=== PATIENT | male | born 1975 | race Caucasian/White ===

== ENCOUNTER 2022-09-26 15:55 | Emergency (ER) | payer BC, SELFPAY ==
--- NOTE | 2022-09-26 16:39 | XR_ITS ---
PROCEDURE INFORMATION: Exam: XR Right Foot Exam date and time: 09/26/2022 4:38 PM Age: 46 years old Clinical indication: Pain; Foot; Right; Additional info: Right lateral foot pain TECHNIQUE: Imaging protocol: Radiologic exam of the Right foot. Views: 3 or more views. COMPARISON: No relevant prior studies available. FINDINGS: Bones/joints: No acute fracture or dislocation. Ovoid 9 mm accessory peroneal ossicle noted lateral to the cuboid bone. Minimal plantar and Achilles calcaneal spurs.There are no lytic skeletal lesions seen. No significant bony arthritic deformities. Soft tissues: Minimal soft tissue swelling.No radiopaque foreign bodies. No pathologic soft tissue calcification. IMPRESSION: 1. No acute fracture or dislocation. 2. Minimal degenerative changes, as above.
[2022-09-26 16:45] VITALS: BP 127/77; PULSE 87; RESP 18; TEMP 36.6; O2SAT 100; BMI 32.1
--- NOTE | 2022-09-26 17:06 | EXP.UTC ---
Discharge Plan Disposition Patient Disposition: Home, Self-Care Condition: Good Referrals Follow up/Referrals: Provider,Referral, MD [Primary Care Provider] - See instructions Activity Restrictions/Add. Instructions Additional Instructions/Restrictions: *weight bearing as tolerated *RICE, Rest the extremity, Ice 15-20 minutes 3-4 times daily, Compress- wear the todd wrap as discussed as much as possible to help reduce swelling and pain, Elevate the extremity when at rest *Todd wrap is for support and help control swelling, use it except in the shower. Be sure that is not to tight but not to loose either *Elevate when resting? *Ibuprofen 600-800mg every 6-8 hours as needed for pain an inflammation. If need something more can take Tylenol in between doses of Ibuprofen to help Immediately follow up with your family doctor for new or worsening of symptoms, or no noticeable improvement over the next 3-5 days Return if needed Follow up with [facility] if no improvement or any worsening of symptoms Clinical Impressions Clinical Impression: Acute foot pain Qualifiers: Laterality: right Qualified Code(s): M79.671 - Pain in right foot Instructions Patient Instructions: DI for Foot Pain Discharge ED Provider: Lizett Freedman [facility] General Stated complaint: right foot pain, no known accident Time Seen by Provider: 09/26/22 17:06 History of Present Illness Provider Complaint: Patient state that he has been having pain in the side of his right foot since Monday and hurts when he puts weight on it States that he doesnt remember doing anything to hurt it but today he was still having pain and felt like it was swollen so he came in to get it checked out Related Data Allergies Allergy/AdvReac Type Severity Reaction Status Date / Time No Known Allergies Allergy Verified 09/26/22 17:13 [facility] Medical History (Updated 09/26/22 @ 17:54 by Lizett Freedman APRN) Anxiety Depression Hyperlipidemia Hypertension Surgical History (Updated 09/26/22 @ 17:12 by Adali Powell RN) History of back surgery Social History (Updated 09/26/22 @ 17:13 by Adali Powell RN) Smoking Status: Unknown if ever smoked alcohol intake: never current occupational status: other Travel in the last 8 weeks: None ROS Obtained: Yes All systems reviewed & no additional complaints except as documented and Yes Systems reviewed as appropriate & no additional complaints except as documented Constitutional Constitutional: Reports system reviewed and no additional complaints, except as documented and Reports as per HPI Cardiovascular Cardiovascular: Reports system reviewed and no additional complaints, except as documented and Reports as per HPI Respiratory Respiratory: Reports system reviewed and no additional complaints, except as documented and Reports as per HPI Gastrointestinal Gastrointestingal: Reports system reviewed and no additional complaints, except as documented and as per HPI Musculoskeletal Musculoskeletal: Reports system reviewed and no additional complaints, except as documented, Reports as per HPI and Reports other (Pain in side of right foot denies known injury) Physical Exam General General appearance: alert and in no apparent distress Respiratory Respiratory exam: Present normal lung sounds bilaterally; Absent respiratory distress or wheezes Cardiovascular Cardiovascular exam: Present regular rate, normal rhythm and normal heart sounds Expanded Lower Extremity Exam Right: Ankle exam: Present normal inspection and full ROM Foot/toe exam: Present tenderness; Absent swelling, ecchymosis or erythema Top foot image: 1. reports tenderness and pain with weight bearing denies known injury no swelling no redness no warmth noted Neurovascular/Tendon exam: Present normal capillary refill; Absent pulse deficit or motor deficit Gait: observed and normal Neurological Exam Neur
[2022-09-26 17:57] VITALS: BP 127/77; PULSE 87; RESP 18; TEMP 36.6; O2SAT 100
== END 2022-09-26 18:00 | disposition home or self-care (01) ==
PROVIDERS: Emergency Provider Nurse Practitioner
DX: M79.671 Pain in right foot (principal)
CPT/HCPCS: 73630; 99212; G0463

== ENCOUNTER 2023-07-13 11:58 | Emergency (ER) | payer BC, SELFPAY ==
[2023-07-13 12:08] VITALS: BP 117/71; PULSE 81; RESP 14; TEMP 36.6; O2SAT 99; BMI 34.5
[2023-07-13 12:30] VITALS: BP 126/79; PULSE 82; O2SAT 97
--- NOTE | 2023-07-13 12:42 | CA_ITS ---
FINAL REPORT TECHNIQUE: Graded compression, spectral analysis and ultrasound images of the venous system of the upper extremity were obtained. CLINICAL HISTORY: LUE swelling/pain without injury, Hx- bone spurs in spine FINDINGS: The jugular vein, subclavian vein, axillary vein, brachial vein, cephalic vein and basilic venous system are fully compressible and demonstrate no evidence of thrombosis. IMPRESSION: No evidence of thrombosis of the venous system of the left upper extremity. Reviewed, Interpreted and Dictated by Amador Anderson III, MD Transcribed by Kathie Olvera Authenticated and [facility]
[2023-07-13 13:37] VITALS: BP 115/71; PULSE 80; O2SAT 96
--- NOTE | 2023-07-13 13:40 | PC.NURSE ---
MARVIN Valdes rounded on patient, no needs at this time. Call light within reach.
--- NOTE | 2023-07-13 13:57 | HMH.EDGENADL ---
Discharge Plan Disposition Patient Disposition: Home, Self-Care Condition: Good Prescriptions Prescriptions: New methocarbamol 750 mg tablet 750 mg PO Q8H PRN (Reason: pain) Qty: 20 0RF Referrals Follow up/Referrals: Luz Chairez APRN [Primary Care Provider] - See instructions Activity Restrictions/Add. Instructions Additional Instructions/Restrictions: You were evaluated in the emergency department today. At this time, I feel that your pain is musculoskeletal. Please seed cone picker your prescription for muscle laxer at the pharmacy and take as needed for pain. You may also take Tylenol and ibuprofen in addition to this. Follow-up with your primary care provider over the next 3 days for reassessment. Return to the emergency department for new or worsening symptoms. Clinical Impressions Clinical Impression: Neck and shoulder pain Instructions Patient Instructions: DI for Acute Pain -- Adult, DI for Shoulder Pain Discharge ED Provider: Niesha Najera General Adult HPI General Chief complaint: PAIN Stated complaint: Lt shoulder pain, Lt hand swelling, no accident Time Seen by Provider: 07/13/23 12:37 Mode of Arrival: Ambulatory Source of Information: Patient Limitations: No Limitations Description of Symptoms (Recalled from ER Triage Doc. by RN): 47 yo M presents to ED with c/o left shoulder pain. pt reports he has pain that comes and goes with that shoulder. pt reports that this weekend pt was doing work in the yard. and pain began. History of Present Illness HPI narrative: This patient is a 47-year-old male who presents to the emergency department for evaluation with concern for left-sided shoulder pain. He states that he has had chronic issues with his left shoulder as well as pain that comes and goes. He was working in his yard during the week, and the pain started again. Is been going on for 3 days and he has not been able to get it under control with [id number] pain medications at home. He states that he also feels like his left arm is swollen and his hand is tight. He denies any history of blood clots, clotting disorders, chest pain, shortness of breath, or other concerns. He is otherwise been well without any acute focal injuries noted. Related Data Previous Rx's Medication Instructions Recorded methocarbamol 750 mg tablet 750 mg PO Q8H PRN pain #20 tabs 07/13/23 Allergies Allergy/AdvReac Type Severity Reaction Status Date / Time No Known Allergies Allergy Verified 09/26/22 17:13 [facility] Disclaimer: The information contained in this section may have been updated after the patient was seen, as this information can be updated by other users. Medical History Anxiety Depression Hyperlipidemia Hypertension Surgical History History of back surgery Social History Smoking Status: Never smoker alcohol intake: never current occupational status: other Travel in the last 8 weeks: None ROS Obtained: Yes All systems reviewed & no additional complaints except as documented Physical Exam General General appearance: alert and in no apparent distress Head Head exam: atraumatic and normocephalic Eye Eye exam: Present normal appearance, PERRL and EOMI ENT ENT exam: Present normal exam, normal oropharynx, mucous membranes moist and normal external ear exam Neck Neck exam: Present normal inspection, full ROM and trachea midline; Absent tenderness Chest Chest inspection: Present normal inspection and symmetric chest wall rise; Absent tenderness Respiratory Respiratory exam: Present normal lung sounds bilaterally; Absent respiratory distress, wheezes, stridor or accessory muscle use Cardiovascular Cardiovascular exam: Present regular rate and normal rhythm Abdominal Exam Abdominal exam: Present soft; Absent distention, te
[2023-07-13 14:01] VITALS: BP 109/60; PULSE 73; O2SAT 98
[2023-07-13 14:06] VITALS: BP 109/60; PULSE 73; RESP 19; TEMP 36.7; O2SAT 98
== END 2023-07-13 14:07 | disposition home or self-care (01) ==
PROVIDERS: Emergency Provider Emergency Medicine; PCP Nurse Practitioner
DX: M25.512 Pain in left shoulder (principal); R22.32 Localized swelling, mass and lump, left upper limb; E78.5 Hyperlipidemia, unspecified; I10 Essential (primary) hypertension; F41.9 Anxiety disorder, unspecified; F32.A Depression, unspecified
CPT/HCPCS: 93971; 96372; 99284